=== PATIENT | female | born 1955 | race African-American/Black ===

== ENCOUNTER 2017-10-07 16:20 | Emergency (ER) | payer OTHER, MEDICAID ==
[~2017-10-07] VITALS: Ht 160 cm; Wt 77.0 kg
[2017-10-07 20:52] VITALS: BP 147/86
== END 2017-10-07 20:53 | disposition home or self-care (01) ==
LOC: ER 18:06
DX: K45.8 Other specified abdominal hernia without obstruction or gangrene (principal); F17.200 Nicotine dependence, unspecified, uncomplicated; M54.5 Low back pain
CPT/HCPCS: 99282